=== PATIENT | female | born 1970 | race Caucasian/White ===

== ENCOUNTER 2017-01-20 08:30 | Outpatient (CLI) | payer BC ==
--- NOTE | 2017-01-20 10:03 | RAD ---
LEFT FOOT 3 VIEWS: Date: 01/20/17 HISTORY: Left foot pain. FINDINGS: Lisfranc joint alignment is anatomic. Pes planus is apparent on the lateral view. Plantar enthesophy te arises from the inferior aspect of the calcaneus. There is mild osteophytosis throughout the foot . No acute fracture, dislocation, or aggressive osseous erosions are apparent. IMPRESSION: Chronic-type findings as detailed above. No acute osseous abnormalities are demonstrated. POS: LENNY
== END 2017-01-20 08:31 | disposition home or self-care (01) ==
LOC: RAD-FRANK 08:30
PROVIDERS: ATTEND Nurse Practitioner Family
DX: M79.672 Pain in left foot (principal)

== ENCOUNTER 2017-05-08 13:28 | Outpatient (CLI) | payer BC ==
--- NOTE | 2017-05-08 14:58 | MMO ---
BILATERAL SCREENING MAMMOGRAM: Date: 05/08/17 INDICATION: Annual exam. COMPARISON: Prior exam dated 12/17/15. FINDINGS: Interpretation of this exam was assisted with computer-aided detection. The breast parenchyma is heterogeneously dense, which limits the sensitivity of mammography. No new suspicious mass, cluster of microcalcifications, or area of architectural distortion is eviden t. IMPRESSION: BIRADS 2: Benign Finding(s) Recommend routine annual mammographic screening. POS: LENNY
== END 2017-05-08 13:29 | disposition home or self-care (01) ==
LOC: SCSMAMMO 13:28
PROVIDERS: ATTEND Nurse Practitioner Family
DX: Z12.31 Encounter for screening mammogram for malignant neoplasm of breast (principal)
CPT/HCPCS: 77067

== ENCOUNTER 2018-01-18 08:00 | Outpatient (CLI) | payer BC ==
--- NOTE | 2018-01-18 11:15 | ULT ---
ABDMINAL ULTRASOUND: 01/18/2018 HISTORY: Dysuria. Genital prolapse. Pain. COMPARISON: None. TECHNIQUE: Multiplanar gaffney-scale sonographic imaging of the abdomen provided. FINDINGS: The imaged IVC, aorta, and pancreas appear grossly unremarkable. No discrete focal liver lesion or intrahepatic biliary dilatation is seen. The common bile duct measures approximately 3 mm, within normal limits. No gallbladder wall thickening or pericholecystic fluid. No gallstones are noted. The Sapp sign i s negative, per the performing claims supervisor. There may be a very small amount of sludge within the ga llbladder. The right kidney measures 10.1 cm in craniocaudal dimension, and the left kidney measures 9.2 cm in c raniocaudal dimension. The spleen measures 10.5 cm. These measurements are within normal limits. T here is a focal area of shadowing in the region of the splenic hilum, which may represent shadowing f rom bowel gas or from atherosclerotic calcification. This cannot be well assessed on this exam. The re is no renal mass, hydronephrosis, or renal stone seen on either side. IMPRESSION: Incidental findings, as described above. No acute findings are seen. POS: OFF
--- NOTE | 2018-01-18 11:37 | ULT ---
PELVIC ULTRASOUND: DATE: 01/18/2018. COMPARISON: None. HISTORY: Genital prolapse, dysuria, urinary tract infections. TECHNIQUE: Multiplanar, gaffney scale, sonographic imaging of the pelvis is obtained with endovaginal and transabdo kemi imaging. FINDINGS: Neither ovary could be discretely visualized despite transabdominal and endovaginal imaging. Prevoid urinary bladder volume is 146 cc and postvoid urinary bladder volume is 3.1 cc. Uterus measures 4.8 x 2.8 x 3.8 cm. The endometrial canal is fluid-filled, and the endometrial fluid-filled canal measu res 6 mm in transverse dimension. There is a suggestion of a nonspecific cystic structure in the region of the left hemipelvis/left adn exa on transabdominal imaging measuring 3.4 x 2.3 x 2.9 cm. This is not definitely evaluated on this examination and further assessment would require CT or MRI. There is a 3 mm echogenic focus with shadowing associated with the endometrium which may represent a calcification. No uterine mass identified. IMPRESSION: 1. Limited pelvic ultrasound which does not discretely visualize either ovary on transabdominal or e ndovaginal imaging. Question cystic lesion measuring 3.4 cm in the left hemipelvis, which could be b bryce assessed via pelvic MRI or CT. 2. Pre- and postvoid urinary bladder volumes of 146 cc and 3.1 cc respectively. POS: OFF
== END 2018-01-18 08:01 | disposition home or self-care (01) ==
LOC: SCSULT 08:00
PROVIDERS: ATTEND Nurse Practitioner Family
DX: N81.9 Female genital prolapse, unspecified (principal); R30.0 Dysuria
CPT/HCPCS: 76700; 76856

== ENCOUNTER 2018-07-17 07:48 | Outpatient (CLI) | payer BC ==
--- NOTE | 2018-07-17 07:59 | RAD ---
Exam: Left foot 3 views: HISTORY: Left foot pain COMPARISON: 01/20/2017 FINDINGS: No evidence for fracture, dislocation, or other significant acute osseous abnormality. IMPRESSION: No significant acute process.
== END 2018-07-17 07:49 | disposition home or self-care (01) ==
LOC: RAD-FRANK 07:48
PROVIDERS: ATTEND Nurse Practitioner Family
DX: M79.672 Pain in left foot (principal)

== ENCOUNTER 2018-07-17 13:40 | Outpatient (CLI) | payer BC ==
--- NOTE | 2018-07-17 14:24 | MMO ---
Bilateral MAMMO Bilat Screen [facility]. CLINICAL HISTORY: Patient is 48 years old and is seen for screening. The patient has no family history of breast cancer. The patient has no personal history of cancer. VIEWS: The views performed were: bilateral craniocaudal with tomosynthesis and bilateral mediolateral oblique with tomosynthesis. FILMS COMPARED: The present examination has been compared to prior imaging studies performed at [facility] on 09/18/2012, 10/16/2013, 10/31/2014, 12/17/2015 and 05/08/2017. MAMMOGRAM FINDINGS: The breasts are heterogeneously dense, which could obscure a lesion on mammography. There are no suspicious masses, suspicious calcifications, or new areas of architectural distortion. IMPRESSION: THERE IS NO MAMMOGRAPHIC EVIDENCE OF MALIGNANCY. A ROUTINE FOLLOW-UP MAMMOGRAM IN 1 YEAR IS RECOMMENDED. THE RESULTS OF THIS EXAM WERE SENT TO THE PATIENT. ACR BI-RADS Category 1 - Negative MAMMOGRAPHY NOTE: 1. A negative mammogram report should not delay a biopsy if a dominant of clinically suspicious mass is present. 2. Approximately 10% to 15% of breast cancers are not detected by mammography. 3. Adenosis and dense breasts may obscure an underlying neoplasm.
== END 2018-07-17 13:41 | disposition home or self-care (01) ==
LOC: BICMAMMO 13:40
PROVIDERS: ATTEND Nurse Practitioner Family
DX: Z12.31 Encounter for screening mammogram for malignant neoplasm of breast (principal)
CPT/HCPCS: 77063; 77067

== ENCOUNTER 2019-01-24 08:49 | Outpatient (CLI) | payer BC ==
--- NOTE | 2019-01-24 09:07 | RAD ---
Exam: 2 views left calcaneus HISTORY: pain FINDINGS: Minimal spurring of the calcaneus at the plantar aponeurosis insertion site. No fracture. IMPRESSION: Minimal spurring.
== END 2019-01-24 08:50 | disposition home or self-care (01) ==
LOC: RAD-FRANK 08:49
PROVIDERS: ATTEND Nurse Practitioner Family
DX: M79.672 Pain in left foot (principal); M77.32 Calcaneal spur, left foot

== ENCOUNTER 2021-05-10 11:32 | Outpatient (CLI) | payer BC | END 2021-05-10 11:33 | disposition home or self-care (01) | LOC: BICMAMMO 11:32 | PROVIDERS: ATTEND Nurse Practitioner Family | DX: Z12.31 Encounter for screening mammogram for malignant neoplasm of breast (principal) | CPT/HCPCS: 77063; 77067 ==

== ENCOUNTER 2022-05-20 07:55 | Outpatient (CLI) | payer BC | END 2022-05-20 07:56 | disposition home or self-care (01) | LOC: BICMAMMO 07:55 | PROVIDERS: ATTEND Nurse Practitioner Family | DX: Z12.31 Encounter for screening mammogram for malignant neoplasm of breast (principal); Z80.3 Family history of malignant neoplasm of breast | CPT/HCPCS: 77063; 77067 ==

== ENCOUNTER 2023-05-24 10:28 | Outpatient (CLI) | payer BC | END 2023-05-24 10:29 | disposition home or self-care (01) | LOC: BICMAMMO 10:28 | PROVIDERS: ATTEND Nurse Practitioner Family | DX: Z12.31 Encounter for screening mammogram for malignant neoplasm of breast (principal); Z80.3 Family history of malignant neoplasm of breast | CPT/HCPCS: 77063; 77067 ==